=== PATIENT | female | born 1970 | race Caucasian/White ===

== ENCOUNTER 2019-11-05 17:58 | Emergency (ER) | payer OTHER ==
[~2019-11-05] VITALS: Ht 165.1 cm; Wt 75.0 kg
[2019-11-05 18:31] VITALS: BP 185/69
[2019-11-05] MEDS ORDERED: METHIMAZOLE (22:00)
[2019-11-05] MEDS ORDERED: PROPRANOLOL (22:00)
[2019-11-05] MEDS ORDERED: SERT100T PO (22:00)
[2019-11-06] MEDS ORDERED: PROP20TA PO (09:49)
[2019-11-06] MEDS ORDERED: METH10TA6 PO (09:49)
== END 2019-11-05 18:20 | disposition left against medical advice (07) ==
LOC: ER 17:58
DX: Z00.8 Encounter for other general examination (principal); Z53.21 Procedure and treatment not carried out due to patient leaving prior to being seen by health care provider

== ENCOUNTER 2019-11-05 18:46 | Observation (INO) | payer OTHER ==
[~2019-11-05] VITALS: Ht 165.1 cm; Wt 78.6 kg
--- NOTE | 2019-11-05 19:35 | PHYS DOC ---
Past History Past Medical History: Anxiety, Depression, Hypertension Additional Past Medical Histor: graves Past Surgical History: Alcohol Use: None General Adult EDM: Chief Complaint: PSYCH EVALUATION HPI: HPI: 49-year-old female presents with suicidal ideation and depression. She has been feeling this way for "a long time". She has been having daily suicidal thoughts for at least a few weeks. She does not have a specific plan. She has not made an attempt. She just feels overwhelmed by life. She admits to depression and severe anxiety. She denies any medical complaints. She denies alcohol or drug use. She is not a smoker. Denies fever or chills. Review of Systems: Review of Systems: Constitutional: Denies fever or chills Eyes: Denies change in visual acuity HENT: Denies nasal congestion or sore throat Respiratory: Denies cough or shortness of breath Cardiovascular: Denies chest pain or edema GI: Denies abdominal pain, nausea, vomiting, bloody stools or diarrhea : Denies dysuria Musculoskeletal: Denies back pain or joint pain Integument: Denies rash Neurologic: Denies headache, focal weakness or sensory changes Endocrine: Denies polyuria or polydipsia Lymphatic: Denies swollen glands Psychiatric: Suicidal ideation, depression, anxiety. Heart Score: Risk Factors: Risk Factors: DM, Current or recent (<one month) smoker, HTN, HLP, family history of CAD, obesity. Risk Scores: Score 0 - 3: 2.5% MACE over next 6 weeks - Discharge Home Score 4 - 6: 20.3% MACE over next 6 weeks - Admit for Clinical Observation Score 7 - 10: 72.7% MACE over next 6 weeks - Early Invasive Strategies Allergies: Allergies: Allergies Coded Allergies Type Severity Reaction Last Updated Verified No Known Drug Allergies 11/05/19 No Physical Exam: PE: Constitutional: Well developed, well nourished, no acute distress, non-toxic appearance. [] HENT: Normocephalic, atraumatic, bilateral external ears normal, oropharynx moist, no oral exudates, nose normal. [] Eyes: PERRLA, EOMI, conjunctiva normal, no discharge. [] Neck: Normal range of motion, no tenderness, supple, no stridor. [] Cardiovascular:Heart rate regular rhythm, no murmur [] Lungs & Thorax: Bilateral breath sounds clear to auscultation [] Abdomen: Bowel sounds normal, soft, no tenderness, no masses, no pulsatile masses. [] Skin: Warm, dry, no erythema, no rash. [] Back: No tenderness, no CVA tenderness. [] Extremities: No tenderness, no cyanosis, no clubbing, ROM intact, no edema. [] Neurologic: Alert and oriented X 3, normal motor function, normal sensory function, no focal deficits noted. [] Psychologic: Affect tearful, mood depressed. [] Current Patient Data: Vital Signs: Vital Signs Date Time Temp Pulse Resp B/P (MAP) Pulse Ox O2 Delivery O2 Flow Rate FiO2 11/05/19 19:05 98.1 107 16 168/76 (106) 96 Room Air EKG: EKG: [] Radiology/Procedures: Radiology/Procedures: [] Course & Med Decision Making: Course & Med Decision Making Pertinent Labs and Imaging studies reviewed. (See chart for details) The patient's labs are significant for potassium of 2.7. This will require oral and IV replacement. Will admit the patient to the hospital for potassium replacement before her psychiatric screen. I spoke with Dr. Craig and he has accepted the patient for admission. [] Dragon Disclaimer: Dragon Disclaimer: This electronic medical record was generated, in whole or in part, using a voice recognition dictation system. Departure Departure: Impression: Primary Impression: Hypokalemia Additional Impression: Suicidal ideation Disposition: ADMITTED INPATIENT Admitting Physician: Ronald Craig Condition: STABLE Referrals: PCP,NO (PCP) Justification of Admission: Justification of Admission: Justification of Admission Dx: Yes Comments: hypokalemia LAVERN MARK DO Nov 05, 2019 19:35
[2019-11-05 19:56] LABS: BASO % 0 % (0-3); EOS # 0.1 x10^3/uL (0.0-0.7); EOS % 1 % (0-3); HEMATOCRIT 39.2 % (36.0-47.0); HEMOGLOBIN 13.5 g/dL (12.0-15.5); LYMPH # 2.7 x10^3/uL (1.0-4.8); LYMPH % 31 % (24-48); MEAN CORPUSCULAR HEMOGLOBIN 29 pg (25-35); MEAN CORPUSCULAR HGB CONC 35 g/dL (31-37); MEAN CORPUSCULAR VOLUME 85 fL (79-100); MONO # 1.1 x10^3/uL (0.0-1.1); MONO % 13 % (0-9); NEUT # 4.9 x10^3uL (1.8-7.7); NEUT % 56 % (31-73); PLATELET COUNT 286 x10^3/uL (140-400); RED BLOOD COUNT 4.64 x10^6/uL (3.50-5.40); RED CELL DISTRIBUTION WIDTH 12.2 % (11.5-14.5); WHITE BLOOD COUNT 8.8 x10^3/uL (4.0-11.0)
[2019-11-05 19:58] LABS: BARBITURATES NEG (NEG); BENZODIAZEPINES NEG (NEG); CANNABINOIDS NEG (NEG); COCAINE NEG (NEG); METHADONE NEG (NEG); OPIATES NEG (NEG); PHENCYCLIDINE NEG (NEG)
[2019-11-05 20:00] LABS: ALBUMIN 3.2 g/dL (3.4-5.0); ALBUMIN/GLOBULIN RATIO 0.9 (1.0-1.7); CREATININE 0.5 mg/dL (0.6-1.0); GFR 132.2; TOTAL BILIRUBIN 1.3 mg/dL (0.2-1.0); TOTAL PROTEIN 6.7 g/dL (6.4-8.2)
[2019-11-05 20:05] LABS: AMPHETAMINE/METHAMPHETAMINE NEG (NEG)
[2019-11-05 20:08] LABS: CLARITY,URINE HAZY; COLOR,URINE AMBER; GLUCOSE,URINE NEG (NEG)
[2019-11-05 20:09] LABS: BACTERIA,URINE FEW /HPF (0-FEW); NITRITE,URINE NEG (NEG); SQUAMOUS EPITHELIAL CELL,UR FEW /LPF; WBC,URINE OCC /HPF (0-4)
[2019-11-05 20:12] LABS: BILIRUBIN,URINE SMALL (NEG)
[2019-11-05] MEDS ORDERED: POTASSIUM CL 40MEQ IN 0.9%NACL 1,000 ML IV ONE (20:30)
[2019-11-05] MEDS ORDERED: POTASSIUM CHLORIDE 20 MEQ TABLET.ER. PO ONE (20:30)
[2019-11-05] MEDS ORDERED: ONDANSETRON PF 4 MG/2 ML VIAL. IVP PRN (21:15)
[2019-11-05 21:42] VITALS: BP 146/70
[2019-11-05] MEDS ORDERED: METHIMAZOLE (22:00)
[2019-11-05] MEDS ORDERED: SERT100T PO (22:00)
[2019-11-05] MEDS ORDERED: PROPRANOLOL (22:00)
[2019-11-06 06:22] VITALS: BP 159/85
[2019-11-06 06:24] VITALS: BP 159/85
--- NOTE | 2019-11-06 06:38 | EKG ---
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
[2019-11-06 07:19] LABS: ALBUMIN 2.6 g/dL (3.4-5.0); ALBUMIN/GLOBULIN RATIO 0.9 (1.0-1.7); CALCIUM 8.4 mg/dL (8.5-10.1); CREATININE 0.5 mg/dL (0.6-1.0); GFR 132.2; POTASSIUM 3.2 mmol/L (3.5-5.1); TOTAL BILIRUBIN 1.3 mg/dL (0.2-1.0); TOTAL PROTEIN 5.6 g/dL (6.4-8.2)
[2019-11-06] MEDS ORDERED: METH10TA6 PO (09:49)
[2019-11-06] MEDS ORDERED: PROP20TA PO (09:49)
[2019-11-06] MEDS ORDERED: PROPRANOLOL 20 MG TABLET. PO SCH (10:00)
[2019-11-06] MEDS ORDERED: SERTRALINE 100 MG TABLET. PO SCH (10:00)
[2019-11-06] MEDS ORDERED: POTASSIUM CHLORIDE 20 MEQ TABLET.ER. PO ONE (11:15)
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
[2019-11-06 12:01] VITALS: BP 155/79
--- NOTE | 2019-11-06 14:42 | HP ---
ADMIT DATE: 11/05/2019 ADDENDUM The patient was examined earlier today. She is stable from a medical standpoint for transfer to inpatient psychiatric facility. SOLA WEST MD DR: JENNY/kristal JOB#: [id number] / [id number]
[2019-11-06 16:03] VITALS: BP 139/77
--- NOTE | 2019-11-06 16:33 | DS ---
DATE OF DISCHARGE: 11/05/2019 ATTENDING PHYSICIAN: Dr. West. FINAL DISCHARGE DIAGNOSES: 1. A 49-year-old female with major depression and anxiety. 2. Suicidal ideations without active plans. 3. Essential hypertension. 4. History of Graves' disease, on thyroid suppression. 5. Hypokalemia, corrected. HISTORY AND PHYSICAL: This is a 49-year-old female, currently under a lot of stress. She is quite depressed that she had suicidal ideations daily for the last several weeks. She does not have a specific plan. She was very teary eyed, states I don't want to go on like this. She was admitted for further evaluation. PHYSICAL EXAMINATION: Please see the dictated note. PERTINENT LABORATORY AND X-RAY STUDIES: Normal CBC and white count. Potassium 2.7, replaced up to 3.2 and repeat was 3.3 mEq per liter. The rest of the chemistry panel is unremarkable. She had no other symptom. Bilirubin slightly elevated at 1.3 mg/dL. COURSE IN THE HOSPITAL: The patient was admitted. Home meds were restarted. We made a request out to [facility] and they agreed to take the patient. Therefore, she was deemed medically stable. will provide transportation. She was discharged on the second day afternoon to go for inpatient care for depression at [facility]. Her home meds are unchanged. They include the following: She should continue her Zoloft 100 mg daily, Inderal 20 mg b.i.d. and her methimazole 10 mg b.i.d. Her prognosis is fair. She was discharged then from our hospital in stable condition with explicit instructions and followup care. SOLA WEST MD DR: JENNY/kristal JOB#: [id number] / [id number]
[2019-11-08 08:01] LABS: POTASSIUM 2.7 mmol/L (3.5-5.1)
== END 2019-11-06 16:35 ==
LOC: ER 18:46 → 1 SOUTH 21:53 → INTOOBSV 21:53
PROVIDERS: ADMIT Internal Medicine; ATTEND Internal Medicine
DX: E87.6 Hypokalemia (principal); R45.851 Suicidal ideations; F32.9 Major depressive disorder, single episode, unspecified; F41.9 Anxiety disorder, unspecified; I10 Essential (primary) hypertension; E05.00 Thyrotoxicosis with diffuse goiter without thyrotoxic crisis or storm; Z98.891 History of uterine scar from previous surgery; Z79.899 Other long term (current) drug therapy
CPT/HCPCS: 36415; 80053; 80307; 81001; 84132; 85025; 93005; 96365; 96375; 99285; G0378; J2060; J2405; G0379

== ENCOUNTER 2020-03-21 23:22 | Emergency (ER) | payer OTHER ==
[~2020-03-21] VITALS: Ht 165.1 cm; Wt 78.6 kg
[~2020-03-21 23:22] MED LIST: METH10TA6 PO; METHIMAZOLE; PROP20TA PO; PROPRANOLOL; SERT100T PO
--- NOTE | 2020-03-21 23:32 | PHYS DOC ---
Past History Past Medical History: Anxiety, Depression, Hypertension Additional Past Medical Histor: graves Past Surgical History: Alcohol Use: None General Adult EDM: Chief Complaint: FOOT INJURY PAIN HPI: HPI: ".. I was wearing my high heel boots.. and I twisted... my Rt. ankle and foot really bad.. even my foot hurts.. " Patient is a 49 year old female who presents with above hx and complaints of Rt foot and ankle injury. Pt. unable to bear wt. due to pain. Pt.has obvious edema to foot and ankle. Pain with foot squeeze. Some laxity of ankle on anterior draw. Inversion increases pain. Pt. denies other injury. No upper leg pain. Pt. denies any recent travel outside cancer area. Patient denies any specific ill contacts.. Cap refill is equal to left foot. Pt. follows with Dr. Pollard. Review of Systems: Review of Systems: Constitutional: Denies fever or chills Eyes: Denies change in visual acuity HENT: Denies nasal congestion or sore throat Respiratory: Denies cough or shortness of breath Cardiovascular: Denies chest pain or edema GI: Denies abdominal pain, nausea, vomiting, bloody stools or diarrhea : Denies dysuria Musculoskeletal: Complains of right ankle and foot pain Integument: Denies rash Neurologic: Denies headache, focal weakness or sensory changes Endocrine: Denies polyuria or polydipsia Lymphatic: Denies swollen glands Psychiatric: Denies depression or anxiety Family History: Family History: Noncontributory to presentation Current Medications: Current Meds: See nursing for home meds Allergies: Allergies: Allergies Coded Allergies Type Severity Reaction Last Updated Verified No Known Drug Allergies 11/05/19 No Physical Exam: PE: Constitutional: in acute distress, non-toxic appearance. [] HENT: Normocephalic, atraumatic, bilateral external ears normal, oropharynx moist, no oral exudates, nose normal. [] Eyes: PERRLA, EOMI, conjunctiva normal, no discharge. [] Neck: Normal range of motion, no tenderness, supple, no stridor. [] Cardiovascular:Heart rate regular rhythm, no murmur [] Lungs & Thorax: Bilateral breath sounds equal apex on auscultation [] Abdomen: Bowel sounds normal, soft, no tenderness, no masses, no pulsatile masses. [] Skin: Warm, dry, no erythema, no rash. [] Back: No tenderness, no CVA tenderness. [] Extremities: No tenderness, no cyanosis, no clubbing, ROM intact, no edema. Except findings in right ankle as per HPI Neurologic: Alert and oriented X 3, normal motor function, normal sensory function, no focal deficits noted. [] Psychologic: Affect anxious, tearful,, judgement normal, mood normal. [] EKG: EKG: [] Radiology/Procedures: Radiology/Procedures: [][place] [id number] IMAGING REPORT Signed PATIENT: BOB CID JACCOUNT: [id number] : 1970 LOCATION: ER AGE: 49 SEX: F EXAM STATUS: REG ER ORD. PHYSICIAN: GREGORY OVALLES MD REASON: twisted PROCEDURE: FOOT RIGHT 3V Exam: Right foot 3 views. Right ankle 3 views INDICATION: Twisted ankle TECHNIQUE: Frontal, lateral and oblique views of the right ankle and right foot Comparisons: None FINDINGS: Ankle: Bone mineralization is normal. No acute or healed fractures. Soft tissues are unremarkable. Joint spaces are well-maintained. Foot: Bone mineralization is normal. No acute or healed fractures. Soft tissues are unremarkable. Joint spaces are well-maintained. IMPRESSION: No acute osseous abnormality. Electronically signed by: Tom Walters MD (03/21/2020 11:59 PM) [facility] DICTATED AND SIGNED BY: TOM WALTERS MD DATE: 03/21/20 [id number] CC: GREGORY OVALLES MD; STEF GUAMAN MD ~MTH0 0 Heart Score: Risk Factors: Risk Factors: DM, Current or recent (<one month) smoker, HTN, HLP, family history of CAD, obesity. Risk Scores: Score 0 - 3: 2.5% MACE over next 6 weeks - Discharge Home Score 4 - 6: 20.3% MACE over next 6 weeks - Admit for Clinical Observation Score 7 - 10: 72.7% MACE over next 6 weeks - Early Invasive Strategies Course & Med Decision Making: Course & Med Decision Making Pertinent Labs and Imaging studies reviewed. (See chart for details) Ice, elevation, rest, wear splint, use crutches, and follow-up primary care. Tylenol and ibuprofen for pain. Marked pain may take Vicoprofen. Stanley-ray in 2 weeks if persistent pain. For marked pain may take Vicoprofen. Distal neurovascular intact after application of splint Impression: 1. Foot sprain 2. Ankle sprain [] Dragon Disclaimer: Dragon Disclaimer: This electronic medical record was generated, in whole or in part, using a voice recognition dictation system. Departure Departure: Referrals: STEF GUAMAN MD (PCP) Scripts Hydrocodone/Ibuprofen (HYDROCODONE-IBUPROFEN 7.5-200 ) 1 Each Tablet 1 TAB PO PRN Q6HRS PRN for PAIN, #30 TAB 0 Refills Prov: GREGORY OVALLES MD 03/22/20 Uday Disclaimer This chart was dictated in whole or in part using Voice Recognition software in a busy, high-work load, and often noisy Emergency Department environment. It may contain unintended and wholly unrecognized errors or omissions. GREGORY OVALLES MD Mar 21, 2020 23:32
[2020-03-21 23:36] VITALS: BP 129/76
--- NOTE | 2020-03-22 00:02 | RAD ---
Exam: Right foot 3 views. Right ankle 3 views INDICATION: Twisted ankle TECHNIQUE: Frontal, lateral and oblique views of the right ankle and right foot Comparisons: None FINDINGS: Ankle: Bone mineralization is normal. No acute or healed fractures. Soft tissues are unremarkable. Joint spa kaity are well-maintained. Foot: Bone mineralization is normal. No acute or healed fractures. Soft tissues are unremarkable. Joint spa kaity are well-maintained. IMPRESSION: No acute osseous abnormality. Electronically signed by: Tom Carroll MD (03/21/2020 11:59 PM) [facility]
--- NOTE | 2020-03-22 00:02 | RAD ---
Exam: Right foot 3 views. Right ankle 3 views INDICATION: Twisted ankle TECHNIQUE: Frontal, lateral and oblique views of the right ankle and right foot Comparisons: None FINDINGS: Ankle: Bone mineralization is normal. No acute or healed fractures. Soft tissues are unremarkable. Joint spa kaiyt are well-maintained. Foot: Bone mineralization is normal. No acute or healed fractures. Soft tissues are unremarkable. Joint spa kaity are well-maintained. IMPRESSION: No acute osseous abnormality. Electronically signed by: Tom Carroll MD (03/21/2020 11:59 PM) [facility]
[2020-03-22] MEDS ORDERED: HYDR-1179 PO (00:19)
[2020-03-22] MEDS ORDERED: HYDROcodon/IBUPROFEN 7.5/200MG 1 TAB TABLET PO ONE (00:30)
== END 2020-03-22 00:29 | disposition home or self-care (01) ==
LOC: ER 23:22
DX: S93.401A Sprain of unspecified ligament of right ankle, initial encounter (principal); S93.601A Unspecified sprain of right foot, initial encounter; I10 Essential (primary) hypertension; F41.9 Anxiety disorder, unspecified; F32.9 Major depressive disorder, single episode, unspecified; X50.9XXA Other and unspecified overexertion or strenuous movements or postures, initial encounter; Y93.89 Activity, other specified; Y92.89 Other specified places as the place of occurrence of the external cause; Y99.8 Other external cause status
CPT/HCPCS: 73610; 73630; 99284; L4350

== ENCOUNTER 2020-04-08 10:47 | Inpatient (IN) | payer OTHER ==
[~2020-04-08] VITALS: Ht 162.6 cm; Wt 73.0 kg
[2020-04-08] VITALS (18 sets, daily range): BP systolic 104–137; BP diastolic 43–87
[~2020-04-08 10:47] MED LIST changes: +HYDR-1179 PO
[2020-04-08] MEDS ORDERED: dilTIAZem VIAL 125 MG in IV NORMAL SALINE 100ML 100 ML IV ONE (11:00)
[2020-04-08] MEDS ORDERED: IV NORMAL SALINE 1,000ML 1,000 ML IV ONE (11:00)
[2020-04-08] MEDS ORDERED: dilTIAZem 25 MG/5 ML VIAL IVP ONE (11:00)
[2020-04-08] MEDS ORDERED: ASPIRIN 325 MG TABLET PO ONE (11:00)
--- NOTE | 2020-04-08 11:09 | EKG ---
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
[2020-04-08] MEDS ORDERED: IV NORMAL SALINE 100ML 100 ML ONE (11:24)
[2020-04-08 11:36] LABS: BASO % 1 % (0-3); EOS # 0.1 x10^3/uL (0.0-0.7); EOS % 2 % (0-3); HEMATOCRIT 41.1 % (36.0-47.0); HEMOGLOBIN 14.1 g/dL (12.0-15.5); LYMPH # 1.8 x10^3/uL (1.0-4.8); LYMPH % 24 % (24-48); MEAN CORPUSCULAR HEMOGLOBIN 30 pg (25-35); MEAN CORPUSCULAR HGB CONC 34 g/dL (31-37); MEAN CORPUSCULAR VOLUME 88 fL (79-100); MONO # 0.8 x10^3/uL (0.0-1.1); MONO % 11 % (0-9); NEUT # 4.9 x10^3uL (1.8-7.7); NEUT % 63 % (31-73); PLATELET COUNT 337 x10^3/uL (140-400); RED BLOOD COUNT 4.69 x10^6/uL (3.50-5.40); RED CELL DISTRIBUTION WIDTH 12.8 % (11.5-14.5); WHITE BLOOD COUNT 7.7 x10^3/uL (4.0-11.0)
[2020-04-08] MEDS ORDERED: KETOROLAC 15 MG/ML VIAL. IVP ONE (11:45)
--- NOTE | 2020-04-08 11:55 | RAD ---
XR CHEST 1V Clinical Indication: Reason: chest pain / Comparison: None. Findings: The cardiomediastinal silhouette is normal. Lungs are clear. There is no pneumothorax. No pleural eff usion is appreciated. No acute bone abnormality. IMPRESSION: No acute cardiopulmonary process. Electronically signed by: Drew Mccracken MD (04/08/2020 11:53 AM) [id number]
[2020-04-08 11:57] LABS: ALBUMIN 3.1 g/dL (3.4-5.0); ALBUMIN/GLOBULIN RATIO 0.9 (1.0-1.7); CALCIUM 8.6 mg/dL (8.5-10.1); CREATININE 0.5 mg/dL (0.6-1.0); GFR 132.2; MAGNESIUM 1.3 mg/dL (1.8-2.4); TOTAL BILIRUBIN 1.6 mg/dL (0.2-1.0); TOTAL PROTEIN 6.6 g/dL (6.4-8.2)
[2020-04-08 11:59] LABS: POTASSIUM 2.8 mmol/L (3.5-5.1)
[2020-04-08 12:23] LABS: ACETAMIN < 2.0 mcg/mL (10-30); ETHANOL < 10 mg/dL (0-10); SALIC < 2.8 mg/dL (2.8-20.0)
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
[2020-04-08] MEDS ORDERED: POTASSIUM CHLORIDE 20 MEQ TABLET.ER. PO ONE (12:45)
[2020-04-08] MEDS ORDERED: MAGNESIUM SULFATE 2GM 50 ML IV ONE (12:45)
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
[2020-04-08 13:14] LABS: BARBITURATES NEG (NEG); BENZODIAZEPINES NEG (NEG); CANNABINOIDS NEG (NEG); COCAINE NEG (NEG); METHADONE NEG (NEG); OPIATES NEG (NEG); PHENCYCLIDINE NEG (NEG)
[2020-04-08 13:26] LABS: AMPHETAMINE/METHAMPHETAMINE NEG (NEG)
[2020-04-08 13:36] LABS: BACTERIA,URINE 0 /HPF (0-FEW); BILIRUBIN,URINE NEG (NEG); CLARITY,URINE HAZY; COLOR,URINE YELLOW; GLUCOSE,URINE NEG (NEG); NITRITE,URINE NEG (NEG); RBC,URINE OCC /HPF (0-2); SQUAMOUS EPITHELIAL CELL,UR MANY /LPF; UROBILINOGEN,URINE 0.2 mg/dL (0.2 mg/dL); WBC,URINE OCC /HPF (0-4)
[2020-04-08] MEDS ORDERED: ACETAMINOPHEN 325 MG TABLET PO PRN (14:15)
[2020-04-08] MEDS ORDERED: ONDANSETRON PF 4 MG/2 ML VIAL. IVP PRN (14:15)
[2020-04-08 14:35] LABS: FREE T4 7.68 ng/dL (0.76-1.46); THYROID STIM HORMONE (TSH) < 0.007 uIU/mL (0.358-3.740)
[2020-04-08] MEDS ORDERED: dilTIAZem VIAL 125 MG in IV NORMAL SALINE 100ML 100 ML IV PRN (15:30)
[2020-04-08] MEDS ORDERED: METH10TA6 PO (16:19)
[2020-04-08] MEDS ORDERED: PROP20TA PO (17:43)
[2020-04-08] MEDS ORDERED: QUET50TA5 PO (17:43)
[2020-04-08] MEDS ORDERED: SERT100T PO (17:43)
[2020-04-08] MEDS ORDERED: ESCITALOPRAM OX10 MG PO (17:43)
[2020-04-08] MEDS: LORazepam 1 MG TABLET PO PRN (18:58)
[2020-04-08] MEDS: PROPRANOLOL 20 MG TABLET. PO SCH (20:23)
[2020-04-08] MEDS ORDERED: QUEtiapine 50 MG TABLET. PO SCH (21:00)
[2020-04-09] VITALS (14 sets, daily range): BP systolic 104–126; BP diastolic 47–74
[2020-04-09] MEDS: LORazepam 1 MG TABLET PO PRN ×2 (03:12→13:14)
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
[2020-04-09] MEDS: PROPRANOLOL 20 MG TABLET. PO SCH (08:35)
[2020-04-09] MEDS ORDERED: CITALOPRAM 20 MG TABLET. PO SCH (09:00)
[2020-04-09] MEDS ORDERED: SERTRALINE 100 MG TABLET. PO SCH (09:00)
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
[2020-04-09] MEDS ORDERED: MAGNESIUM SULFATE 1GM 100 ML IV ONE (11:30)
[2020-04-09] MEDS ORDERED: POTASSIUM CHLORIDE 20 MEQ TABLET.ER. PO ONE (11:30)
[2020-04-09 13:33] LABS: MAGNESIUM 1.9 mg/dL (1.8-2.4); POTASSIUM 4.1 mmol/L (3.5-5.1)
[2020-04-09] MEDS ORDERED: DILT240C2 PO (15:15)
[2020-04-09] MEDS ORDERED: POTA-163 PO (15:16)
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
== END 2020-04-09 15:30 | disposition home or self-care (01) | DRG 309 ==
LOC: ER 10:47 → EEVIPCON 13:57 → ICU 13:57 → MERGE 13:57
PROVIDERS: ADMIT Hospitalist; ATTEND Hospitalist
DX: I48.91 Unspecified atrial fibrillation (principal); R45.851 Suicidal ideations; E05.00 Thyrotoxicosis with diffuse goiter without thyrotoxic crisis or storm; E03.9 Hypothyroidism, unspecified; E87.6 Hypokalemia; E83.42 Hypomagnesemia; F17.210 Nicotine dependence, cigarettes, uncomplicated; F41.8 Other specified anxiety disorders; F43.10 Post-traumatic stress disorder, unspecified; Z83.3 Family history of diabetes mellitus; Z91.14 Patient's other noncompliance with medication regimen; Z91.19 Patient's noncompliance with other medical treatment and regimen; Z79.899 Other long term (current) drug therapy; S46.911A Strain of unspecified muscle, fascia and tendon at shoulder and upper arm level, right arm, initial encounter; X58.XXXA Exposure to other specified factors, initial encounter; Y93.89 Activity, other specified; Y92.89 Other specified places as the place of occurrence of the external cause; Y99.8 Other external cause status; Z20.822 Contact with and (suspected) exposure to COVID-19
CPT/HCPCS: 36415; 70450; 70486; 71045; 72125; 73030; 80053; 80307; 80329; 81001; 81025; 83690; 83735; 83880; 84132; 84439; 84443; 84481; 84484; 85025; 85610; 85730; 87426; 93005; 96365; 96366; 96368; 96376; G0480; J3475; J3490; U0003; 99291-25; J7030

== ENCOUNTER 2020-07-19 19:14 | Emergency (ER) | payer SELFPAY ==
[~2020-07-19] VITALS: Ht 162.6 cm; Wt 73.0 kg
[~2020-07-19 19:14] MED LIST changes: +DILT240C2 PO; +ESCITALOPRAM OX10 MG PO; +POTA-163 PO; +QUET50TA5 PO
[2020-07-19] MEDS ORDERED: IV NORMAL SALINE 1,000ML 1,000 ML IV ONE (19:30)
--- NOTE | 2020-07-19 19:40 | PHYS DOC ---
Past History Past Medical History: Anxiety, Depression, Other Additional Past Medical Histor: Grave's Disease (LARISSA ALTAMIRANO APRN) Past Surgical History: (LARISSA ALTAMIRANO APRN) Smoking: Cigarettes Alcohol Use: None Drug Use: None (LARISSA ALTAMIRANO APRN) General Adult HPI: HPI: Patient is a 49-year-old female presents with productive cough, shortness of breath, fever, congestion for the last 3 to 5 days. Patient states that the shortness of breath started today. Patient was afebrile but reports feeling like she has been running a fever at home. Patient has history of Graves', A. fib RVR. Denies nausea/vomiting/diarrhea. (LARISSA ALTAMIRANO APRN) Review of Systems: Review of Systems: Constitutional: Reports fever and chills Eyes: Denies change in visual acuity HENT: Reports nasal congestion, right ear pain Respiratory: Reports productive cough and shortness of breath Cardiovascular: Denies chest pain or edema GI: Denies abdominal pain, nausea, vomiting, bloody stools or diarrhea : Denies dysuria Musculoskeletal: Denies back pain or joint pain Integument: Denies rash Neurologic: Reports headache , denies focal weakness or sensory changes Endocrine: Denies polyuria or polydipsia Lymphatic: Denies swollen glands Psychiatric: Denies depression or anxiety (LARISSA ALTAMIRANO APRN) Allergies: Allergies: Allergies Coded Allergies Type Severity Reaction Last Updated Verified No Known Drug Allergies 11/05/19 No (LARISSA ALTAMIRANO APRN) Physical Exam: PE: Constitutional: Well developed, well nourished, no acute distress, non-toxic appearance. [] HENT: Normocephalic, atraumatic, bilateral external ears normal, oropharynx moist, no oral exudates, nose normal. [] Eyes: PERRLA, EOMI, conjunctiva normal, no discharge. [] Neck: Normal range of motion, no tenderness, supple, no stridor. [] Cardiovascular:Heart rate sinus tachycardia, no murmur [] Lungs & Thorax: Bilateral breath sounds clear to auscultation [] Abdomen: Bowel sounds normal, soft, no tenderness, no masses, no pulsatile masses. [] Skin: Warm, dry, no erythema, no rash. [] Back: No tenderness, no CVA tenderness. [] Extremities: No tenderness, no cyanosis, no clubbing, ROM intact, no edema. [] Neurologic: Alert and oriented X 3, normal motor function, normal sensory function, no focal deficits noted. [] Psychologic: Affect normal, judgement normal, mood normal. [] (LARISSA ALTAMIRANO APRN) PE: Right tympanic membrane erythematous and bulging suggestive of otitis media with canal having very mild erythema but no signs of otitis externa. No mastoid process tenderness or erythema. (KARLA JOY MD) EKG: EKG: [] (LARISSA ALTAMIRANO APRN) Radiology/Procedures: Radiology/Procedures: [] (LARISSA ALTAMIRANO APRN) Heart Score: C/O Chest Pain: No Risk Factors: Risk Factors: DM, Current or recent (<one month) smoker, HTN, HLP, family history of CAD, obesity. Risk Scores: Score 0 - 3: 2.5% MACE over next 6 weeks - Discharge Home Score 4 - 6: 20.3% MACE over next 6 weeks - Admit for Clinical Observation Score 7 - 10: 72.7% MACE over next 6 weeks - Early Invasive Strategies (LARISSA ALTAMIRANO APRN) Course & Med Decision Making: Course & Med Decision Making Pertinent Labs and Imaging studies reviewed. (See chart for details) [] 49-year-old female presents with cough, shortness of breath, fatigue for the last 3 to 5 days. Chest x-ray ordered to rule out pneumonia. CBC, CMP ordered to rule out any acute abnormalities. UA ordered to rule out infection. Patient is tachypneic and tachycardic, 120s. Liter bolus given for rehydration. Patient is afebrile. Patient given 600 mg of Motrin for discomfort. Dexamethasone given. Chest x-ray is negative. CT of chest ordered to rule out Covid pneumonia. Spoke with Dr. Dennison, who is willing to accept patient at [facility], will call physician back once results are back. Transfer patient care to Dr. Joy (LARISSA ALTAMIRANO APRN) Course & Med Decision Making Patient is a 49-year-old female with a past medical history of hyperthyroidism/Graves' who has missed doses of her methimazole and propranolol who presents to the emergency department with a chief complaint of palpitations, and right ear pain. Patient care checked out to me awaiting labs and CT. Given tachycardia, tachypnea and periods of illness patient had sepsis on the differential, as well as ACS versus PE versus hyperthyroid. Started on IV fluid, got cultures and started on antibiotics. Patient with right-sided otitis media. Laboratory analysis not concerning. CT with no evidence of PE, or pneumonia but does have an enlarged heterogenous thyroid. Patient apparently in hyperthyroid state, with right-sided otitis media. Started on esmolol and given steroids. Discussed patient with Dr. Dunbar at [facility], who stated she needed to see endocrine which we do not have here and recommended transfer to [facility]. Discussed all findings with patient and recommended admission for continued evaluation and treatment of her hyperthyroid state. Patient grateful, verbalized understanding and agreed with plan of discharge. (KARLA JOY MD) Dragon Disclaimer: Dragon Disclaimer: This electronic medical record was generated, in whole or in part, using a voice recognition dictation system. (LARISSA ALTAMIRANO APRN) Departure Departure: Impression: Primary Impression: Thyroid crisis Additional Impression: Otitis media Disposition: 02 SHORT TERM HOSPITAL Condition: IMPROVED Referrals: STEF GUAMAN MD (PCP) LARISSA ALTAMIRANO APRN July 19, 2020 19:40 KARLA JOY MD July 19, 2020 23:11
[2020-07-19] MEDS ORDERED: IBUPROFEN 600 MG TABLET. PO ONE (19:45)
[2020-07-19 19:54] LABS: BASO % 0 % (0-3); EOS # 0.3 x10^3/uL (0.0-0.7); EOS % 3 % (0-3); HEMATOCRIT 41.8 % (36.0-47.0); HEMOGLOBIN 14.4 g/dL (12.0-15.5); LYMPH # 2.1 x10^3/uL (1.0-4.8); LYMPH % 20 % (24-48); MEAN CORPUSCULAR HEMOGLOBIN 30 pg (25-35); MEAN CORPUSCULAR HGB CONC 35 g/dL (31-37); MEAN CORPUSCULAR VOLUME 87 fL (79-100); MONO # 1.4 x10^3/uL (0.0-1.1); MONO % 14 % (0-9); NEUT # 6.5 x10^3uL (1.8-7.7); NEUT % 63 % (31-73); PLATELET COUNT 257 x10^3/uL (140-400); RED BLOOD COUNT 4.79 x10^6/uL (3.50-5.40); RED CELL DISTRIBUTION WIDTH 12.6 % (11.5-14.5); WHITE BLOOD COUNT 10.3 x10^3/uL (4.0-11.0)
[2020-07-19] MEDS ORDERED: DEXAMETHASONE SOD PHOS 10 MG/ML VIAL. IVP ONE (20:00)
[2020-07-19 20:02] LABS: ALBUMIN 3.1 g/dL (3.4-5.0); ALBUMIN/GLOBULIN RATIO 0.8 (1.0-1.7); CALCIUM 8.8 mg/dL (8.5-10.1); CREATININE 0.6 mg/dL (0.6-1.0); GFR 107.2; POTASSIUM 3.1 mmol/L (3.5-5.1); TOTAL BILIRUBIN 1.6 mg/dL (0.2-1.0); TOTAL PROTEIN 7.2 g/dL (6.4-8.2)
[2020-07-19 20:19] LABS: C REACTIVE PROTEIN 10.9 mg/L (0-3.3)
[2020-07-19] MEDS ORDERED: IOHEXOL 350 MG/ML 100 ML VIAL. IV ONE (20:45)
--- NOTE | 2020-07-19 20:59 | RAD ---
EXAMINATION: XR CHEST 1V CLINICAL HISTORY: Shortness of breath EXAM DATE/TIME: 07/19/2020 7:49 PM COMPARISON: None FINDINGS: Lines, Tubes, and Devices: None. Cardiomediastinal Silhouette: Normal heart size. Aortic atherosclerotic calcification. Lungs and Pleura: No evidence of focal airspace consolidation or pleural effusion. Hazy opacity over the left lower lung zone likely related to increased soft tissue attenuation. Pulmonary vasculature u nremarkable. Bones and Soft Tissues: Degenerative changes of the thoracic spine. IMPRESSION: No evidence of acute cardiopulmonary abnormality. Electronically signed by: Justin Gavin DO (07/19/2020 8:56 PM) [facility]
[2020-07-19] MEDS ORDERED: CONTRAST GIVEN. MC PRN (21:00)
--- NOTE | 2020-07-19 21:43 | RAD ---
PQRS Compliance Statement: One or more of the following individualized dose reduction techniques were utilized for this examinat ion: 1. Automated exposure control 2. Adjustment of the mA and/or kV according to patient size 3. Use of iterative reconstruction technique CTA CHEST 07/19/2020 8:40 PM INDICATION: Shortness of air. History of atrial fibrillation. COMPARISON: None available TECHNIQUE: Axial CT images of the chest were obtained after the intravenous administration of nonioni c contrast. Coronal and sagittal reformats are provided. Maximum intensity projection images of the t horacic vasculature are provided. FINDINGS: Enlarged heterogeneous thyroid. Right hilar lymph node measures 10 mm (series 4, image 57). Infrahila r lymph node on the right measures 8 mm (series 4, image 70). The heart size is within normal limits. No significant pericardial effusion. Thoracic aorta is normal in course and caliber. There is adequate opacification of the pulmonary arterial system. There there are no filling defects within the pulmonary arterial system to suggest acute or chronic pulmonary embolus. 5 mm solid noncalcified pulmonary nodule identified within the lateral right lower lobe (series 4, im age 80). There are no pulmonary infiltrates. There are no pleural effusions. No pulmonary vascular co ngestion or pneumothorax. Cholelithiasis. No suspicious osseous lesions are visualized. IMPRESSION: There is no evidence for acute or chronic pulmonary embolism. Enlarged heterogeneous thyroid gland. Nonemergent thyroid ultrasound could be of benefit. 5 mm solid noncalcified pulmonary nodule identified in the right lower lobe. Fleischner guidelines fo r incidentally detected pulmonary nodules suggests no routine follow-up for low risk patients and opt ional CT at 12 months for high risk patients with solid noncalcified pulmonary nodules less than 6 mm in size. Cholelithiasis. Electronically signed by: Sherine Faustin MD (07/19/2020 9:41 PM) [facility]
--- NOTE | 2020-07-19 22:20 | EKG ---
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
--- NOTE | 2020-07-19 22:22 | EKG ---
[address] [address] Test Date: 2020-07-19 Test Time: 20:22:00 Pat Name: BOB CID Department: Room: Gender: F [place] Program Coordinator: JAMARCUS : 1970 Requested By: LARISSA ALTAMIRANO Order Number: [id number] Reading MD: Measurements Intervals [place] Rate: 115 P: 14 VA: 162 QRS: 11 QRSD: 70 T: 30 QT: 294 QTc: 408 Interpretive Statements SINUS TACHYCARDIA ATRIAL PREMATURE COMPLEX(ES) QRS(T) CONTOUR ABNORMALITY CONSISTENT WITH ANTEROSEPTAL INFARCT PROBABLY OLD CONSISTENT WITH INFERIOR INFARCT PROBABLY OLD ABNORMAL ECG RI6.02 No previous ECG available for comparison
[2020-07-19] MEDS ORDERED: ESMOLOL 2500MG/250ML PREMIX 250 ML IV ONE (22:45)
[2020-07-19] MEDS ORDERED: ESMOLOL 100 MG/10 ML VIAL. IV ONE (23:00)
[2020-07-20 00:31] LABS: BACTERIA,URINE 0 /HPF (0-FEW); BILIRUBIN,URINE NEG (NEG); CLARITY,URINE CLEAR; COLOR,URINE YELLOW; GLUCOSE,URINE NEG (NEG); NITRITE,URINE NEG (NEG); RBC,URINE 0 /HPF (0-2); UROBILINOGEN,URINE 0.2 mg/dL (0.2 mg/dL); WBC,URINE 0 /HPF (0-4)
[2020-07-20 00:32] LABS: SQUAMOUS EPITHELIAL CELL,UR OCC /LPF
[2020-07-20 01:15] VITALS: BP 167/89
[2020-07-20] MEDS ORDERED: IV RINGERS SOLUTION,LACTATED 1,000 ML IV ONE (01:15)
[2020-07-20] MEDS ORDERED: ESMOLOL 100 MG/10 ML VIAL. IV ONE (01:15)
[2020-07-20] MEDS ORDERED: FUROSEMIDE 40 MG/4 ML VIAL IVP ONE (03:45)
== END 2020-07-20 02:56 | disposition short-term general hospital (02) ==
LOC: ER 19:14
DX: E05.91 Thyrotoxicosis, unspecified with thyrotoxic crisis or storm (principal); H66.91 Otitis media, unspecified, right ear; F17.210 Nicotine dependence, cigarettes, uncomplicated
CPT/HCPCS: 36415; 71045; 71275; 80053; 81001; 82550; 83605; 83615; 83735; 84145; 84439; 84443; 84484; 85025; 86140; 87040; 93005; 96361; 96365; 96366; 96367; 96375; 96376; 99285; J1100; J1956; J3490; J7030; J7120; Q9967

== ENCOUNTER 2020-10-03 21:43 | Emergency (ER) | payer SELFPAY ==
[~2020-10-03] VITALS: Ht 162.6 cm; Wt 73.0 kg
[2020-10-03 23:18] LABS: BASO % 0 % (0-3); EOS # 0.5 x10^3/uL (0.0-0.7); EOS % 7 % (0-3); HEMATOCRIT 38.3 % (36.0-47.0); HEMOGLOBIN 13.1 g/dL (12.0-15.5); LYMPH # 1.9 x10^3/uL (1.0-4.8); LYMPH % 25 % (24-48); MEAN CORPUSCULAR HEMOGLOBIN 29 pg (25-35); MEAN CORPUSCULAR HGB CONC 34 g/dL (31-37); MEAN CORPUSCULAR VOLUME 86 fL (79-100); MONO # 1.1 x10^3/uL (0.0-1.1); MONO % 14 % (0-9); NEUT # 4.1 x10^3uL (1.8-7.7); NEUT % 54 % (31-73); PLATELET COUNT 246 x10^3/uL (140-400); RED BLOOD COUNT 4.45 x10^6/uL (3.50-5.40); RED CELL DISTRIBUTION WIDTH 12.4 % (11.5-14.5); WHITE BLOOD COUNT 7.7 x10^3/uL (4.0-11.0)
[2020-10-03 23:29] LABS: CALCIUM 8.9 mg/dL (8.5-10.1); CREATININE 0.5 mg/dL (0.6-1.0); GFR 131.7; POTASSIUM 4.1 mmol/L (3.5-5.1)
[2020-10-03] MEDS ORDERED: IV NORMAL SALINE 1,000ML 1,000 ML IV ONE (23:30)
[2020-10-03 23:35] LABS: ALBUMIN 3.2 g/dL (3.4-5.0); ALBUMIN/GLOBULIN RATIO 1.1 (1.0-1.7)
[2020-10-03] MEDS ORDERED: ONDA4TAB12 PO (23:47)
--- NOTE | 2020-10-03 23:47 | PHYS DOC ---
Past History Past Medical History: A-Fib, Anxiety, Depression, Other Additional Past Medical Histor: Grave's Disease Past Surgical History: Smoking: Cigarettes Alcohol Use: None Drug Use: None General Adult EDM: Chief Complaint: MULTIPLE COMPLAINTS HPI: HPI: 50-year-old female presents with cough, congestion, decreased taste for last couple of days. She is most concerned about feeling like she cannot catch her breath. She was not vaccinated for COVID-19. She does not believe she is had a fever at home. Review of Systems: Review of Systems: Constitutional: Denies fever or chills Eyes: Denies change in visual acuity HENT: Decreased taste Respiratory: Cough with shortness of breath Cardiovascular: Denies chest pain or edema GI: Denies abdominal pain, nausea, vomiting, bloody stools or diarrhea : Denies dysuria Musculoskeletal: Denies back pain or joint pain Integument: Denies rash Neurologic: Denies headache, focal weakness or sensory changes Endocrine: Denies polyuria or polydipsia Lymphatic: Denies swollen glands Psychiatric: Denies depression or anxiety Current Medications: Current Meds: Current Medications Medications (Trade) Dose Ordered Sig/Anthony Start Time Stop Time Status Last Admin Dose Admin Dexamethasone Sodium Phosphate (Decadron) 10 mg 1X ONCE 10/04/20 00:00 10/04/20 00:01 Ondansetron HCl (Zofran) 4 mg 1X ONCE 10/04/20 00:00 10/04/20 00:01 Sodium Chloride 1,000 ml @ 1,000 mls/hr 1X ONCE 10/03/20 23:30 10/04/20 00:29 10/03/20 23:04 1,000 MLS/HR Allergies: Allergies: Allergies Coded Allergies Type Severity Reaction Last Updated Verified No Known Drug Allergies 11/05/19 No Physical Exam: PE: Constitutional: Well developed, well nourished, no acute distress, non-toxic appearance. [] HENT: Normocephalic, atraumatic, bilateral external ears normal, oropharynx moist, no oral exudates, nose normal. [] Eyes: PERRLA, EOMI, conjunctiva normal, no discharge. [] Neck: Normal range of motion, no tenderness, supple, no stridor. [] Cardiovascular:Heart rate regular rhythm, no murmur [] Lungs & Thorax: Coughing. Bilateral breath sounds clear to auscultation [] Abdomen: Bowel sounds normal, soft, no tenderness, no masses, no pulsatile masses. [] Skin: Warm, dry, no erythema, no rash. [] Back: No tenderness, no CVA tenderness. [] Extremities: No tenderness, no cyanosis, no clubbing, ROM intact, no edema. [] Neurologic: Alert and oriented X 3, normal motor function, normal sensory function, no focal deficits noted. [] Psychologic: Affect normal, judgement normal, mood normal. [] Current Patient Data: Labs: Laboratory Tests Test 10/03/20 22:50 White Blood Count 7.7 x10^3/uL (4.0-11.0) Red Blood Count 4.45 x10^6/uL (3.50-5.40) Hemoglobin 13.1 g/dL (12.0-15.5) Hematocrit 38.3 % (36.0-47.0) Mean Corpuscular Volume 86 fL (79-100) Mean Corpuscular Hemoglobin 29 pg (25-35) Mean Corpuscular Hemoglobin Concent 34 g/dL (31-37) Red Cell Distribution Width 12.4 % (11.5-14.5) Platelet Count 246 x10^3/uL (140-400) Neutrophils (%) (Auto) 54 % (31-73) Lymphocytes (%) (Auto) 25 % (24-48) Monocytes (%) (Auto) 14 % (0-9) H Eosinophils (%) (Auto) 7 % (0-3) H Basophils (%) (Auto) 0 % (0-3) Neutrophils # (Auto) 4.1 x10^3uL (1.8-7.7) Lymphocytes # (Auto) 1.9 x10^3/uL (1.0-4.8) Monocytes # (Auto) 1.1 x10^3/uL (0.0-1.1) Eosinophils # (Auto) 0.5 x10^3/uL (0.0-0.7) Basophils # (Auto) 0.0 x10^3/uL (0.0-0.2) Sodium Level 141 mmol/L (136-145) Potassium Level 4.1 mmol/L (3.5-5.1) Chloride Level 108 mmol/L (98-107) H Carbon Dioxide Level 28 mmol/L (21-32) Anion Gap 5 (6-14) L Blood Urea Nitrogen 10 mg/dL (7-20) Creatinine 0.5 mg/dL (0.6-1.0) L Estimated GFR (Cockcroft-Gault) 131.7 BUN/Creatinine Ratio 20 (6-20) Glucose Level 124 mg/dL (70-99) H Lactic Acid Level 1.6 mmol/L (0.4-2.0) Calcium Level 8.9 mg/dL (8.5-10.1) Total Bilirubin 1.0 mg/dL (0.2-1.0) Aspartate Amino Transferase (AST) 13 U/L (15-37) L Alanine Aminotransferase (ALT) 28 U/L (14-59) Alkaline Phosphatase 87 U/L (46-116) Troponin I Quantitative < 0.017 ng/mL (0-0.055) Total Protein 6.0 g/dL (6.4-8.2) L Albumin 3.2 g/dL (3.4-5.0) L Albumin/Globulin Ratio 1.1 (1.0-1.7) Vital Signs: Vital Signs Date Time Temp Pulse Resp B/P (MAP) Pulse Ox O2 Delivery O2 Flow Rate FiO2 10/03/20 22:56 98.4 85 18 154/74 97 Room Air EKG: EKG: [] Radiology/Procedures: Radiology/Procedures: [] Heart Score: C/O Chest Pain: N/A Risk Factors: Risk Factors: DM, Current or recent (<one month) smoker, HTN, HLP, family history of CAD, obesity. Risk Scores: Score 0 - 3: 2.5% MACE over next 6 weeks - Discharge Home Score 4 - 6: 20.3% MACE over next 6 weeks - Admit for Clinical Observation Score 7 - 10: 72.7% MACE over next 6 weeks - Early Invasive Strategies Course & Med Decision Making: Course & Med Decision Making Pertinent Labs and Imaging studies reviewed. (See chart for details) The patient's chest x-ray shows some perihilar prominence, but no focal consolidation. Based on her symptoms she has COVID-19. Her oxygen saturation is 97 to 98% on room air. I have given her 4 mg of Zofran and 10 mg of Decadron IV. She does not meet admission criteria. She is stable for discharge at this time. I will give her Zofran for her nausea and a prescription for the same at home. [] Uday Disclaimer: Uday Disclaimer: This electronic medical record was generated, in whole or in part, using a voice recognition dictation system. Departure Departure: Impression: Primary Impression: COVID-19 Disposition: HOME / SELF CARE / HOMELESS Condition: STABLE Referrals: STEF GUAMAN MD (PCP) Additional Instructions: You have been tested for or diagnosed with COVID-19. It is an infection caused by a new type of coronavirus. COVID-19 will cause cold-like or mild flu symptoms in most. It can cause more severe symptoms like problems breathing in some. There is no treatment for COVID-19. The body will clear the infection over time. Self-care will help to ease discomfort. Steps to Take: Self-Care Rest as needed. Healthy habits may help you feel better. Steps include: Choose healthy foods including fruits and vegetables. Drink water throughout the day. Get plenty of sleep each night. If you smoke, try to quit. It may ease breathing. Avoid alcohol. Keep Others Healthy The virus can spread to others. Droplets are released every time you sneeze or cough. The droplets can get into the mouth, nose, or eyes of people near you and lead to infection. To lower the chances of spreading COVID-19 to others: Stay at home until your doctor has said it is safe to leave. If you tested positive this will mean staying isolated until both of the following are true: At least 7 days have passed since the start of illness. You are free of fever for at least 72 hours without the use of medicine. During this time: - Avoid public areas, events, or transportation. Do not return to work or school until your doctor has said it is safe to do so. - Call ahead if you need to go to a medical center. Let them know you may have COVID-19. It will help them guide you where to go. They may also ask you to wear a facemask when you come to the office. - If you call for emergency medical services, let them know you may have COVID- 19. While at home: - Try to avoid close contact with others. Stay about 6 feet away. - If possible, spend most of your time in a separate room from others. - Use a face mask if you will be in close contact with others such as sharing a room or vehicle. - Have someone wipe down common surfaces in the home. Use household optical goods drilling machine operator every day on areas like doorknobs, counters, or sinks. - Cough or sneeze into a tissue. Throw the tissue away right after use. If a tissue is not available, cough or sneeze into your elbow. - Wash your hands often. Wash them after sneezing or coughing. Use soap and water and wash for at least 20 seconds. Alcohol based hand smoking pipes cleaner can be used if soap and water is not available. - Do not prepare food for others. Avoid sharing personal items like forks, spoons, or toothbrushes. - Avoid close contact with pets while you are sick. There is no evidence of the virus passing to pets. This is a safety step until more is known about this virus. Isolation can be frustrating. Social interaction can help. Keep in touch with friends and family through phone and tech options. You can still interact with others in your home, just keep a safe distance of about 6 feet. Follow-up: Your doctors office will check in with you to see if there are any changes in your health. You may be asked to keep track of symptoms to share with them. They will also let you know when you are clear to be in public again. Problems to Look Out For: Contact your doctor if your recovery is not going as you expect. Get emergency care if you have problems such as: - Trouble breathing - Nonstop chest pain or pressure - Changes in awareness, confusion, or problems waking - Lips or face have bluish color - Worsening of symptoms If you think you have an emergency, call for emergency medical services right away. As taken from [facility] Ondansetron (ONDANSETRON ODT) 4 Mg Tab.rapdis 1 TAB PO PRN Q6-8HRS PRN for VOMITING, #16 TAB Prov: LAVERN MARK DO 10/03/20 LAVERN MARK DO Oct 03, 2020 23:47
--- NOTE | 2020-10-03 23:49 | RAD ---
Exam: Chest one view INDICATION: Chest tightness TECHNIQUE: Frontal view of the chest Comparisons: 07/19/2020 FINDINGS: The cardiomediastinal silhouette and pulmonary vessels are within normal limits. The lung and pleural spaces are clear. IMPRESSION: No acute cardiopulmonary process. Electronically signed by: Tom Carroll MD (10/03/2020 11:47 PM) LAURO
[2020-10-04] MEDS ORDERED: ONDANSETRON PF 4 MG/2 ML VIAL. IVP ONE
[2020-10-04] MEDS ORDERED: DEXAMETHASONE SOD PHOS 10 MG/ML VIAL. IVP ONE
[2020-10-04 00:03] VITALS: BP 154/74
--- NOTE | 2020-10-04 01:21 | EKG ---
[address] [address] Test Date: 2020-10-03 Test Time: 23:05:21 Pat Name: BOB CID Department: Room: Gender: F Outpatient Case Manager: : 1970 Requested By: LAVERN MARK Order Number: [id number] Reading MD: Measurements Intervals [place] Rate: 82 P: 40 MD: 178 QRS: 30 QRSD: 74 T: 48 QT: 340 QTc: 400 Interpretive Statements SINUS RHYTHM NORMAL ECG RI6.02 No previous ECG available for comparison
== END 2020-10-04 00:05 | disposition home or self-care (01) ==
LOC: ER 21:43
DX: U07.1 COVID-19 (principal); I48.91 Unspecified atrial fibrillation; F17.210 Nicotine dependence, cigarettes, uncomplicated; F41.9 Anxiety disorder, unspecified; F32.9 Major depressive disorder, single episode, unspecified; Z98.890 Other specified postprocedural states
CPT/HCPCS: 36415; 71045; 80053; 83605; 84484; 85025; 93005; 96361; 96374; 96375; 99285; C9803; J1100; J2405; J7030; U0003

== ENCOUNTER 2021-05-25 07:10 | Emergency (ER) | payer SELFPAY ==
[~2021-05-25] VITALS: Ht 162.6 cm; Wt 61.0 kg
[~2021-05-25 07:10] MED LIST changes: +METH10TA32 PO; -METH10TA6 PO; +ONDA4TAB12 PO
[2021-05-25] MEDS ORDERED: IV NORMAL SALINE 1,000ML 1,000 ML IV ONE (07:45)
--- NOTE | 2021-05-25 07:45 | PHYS DOC ---
Past History Past Medical History: A-Fib, Anxiety, Depression, Other Additional Past Medical Histor: Grave's Disease Past Surgical History: Smoking: Cigarettes Alcohol Use: None Drug Use: None General Adult EDM: Chief Complaint: MULTIPLE COMPLAINTS HPI: HPI: 50-year-old female presents with chest tightness, elevated heart rate, and feeling jittery. The patient has Graves' disease and has been hyperthyroid for many years. She is supposed to be on propranolol and methimazole. She has been out of these for a month. The patient feels like she is not always thinking clearly. She gets intermittently sweaty. She is tired all the time. She has lost some weight but states that she feels hungry and eats all the time. She also complains about being thirsty a lot. She did not think to call her doctor's office to get a bridge prescription until she can be seen in the office. She has no other complaints this time. Review of Systems: Review of Systems: Constitutional: Denies fever or chills. Fatigue, weight loss. Eyes: Denies change in visual acuity HENT: Denies nasal congestion or sore throat Respiratory: shortness of breath Cardiovascular: Chest tightness GI: Denies abdominal pain, nausea, vomiting, bloody stools or diarrhea : Denies dysuria Musculoskeletal: Denies back pain or joint pain Integument: Denies rash Neurologic: Denies headache, focal weakness or sensory changes Endocrine: polydipsia Lymphatic: Denies swollen glands Psychiatric: Denies depression or anxiety Allergies: Allergies: Allergies Coded Allergies Type Severity Reaction Last Updated Verified No Known Drug Allergies 05/25/21 No Physical Exam: PE: Constitutional: Well developed, well nourished, no acute distress, non-toxic appearance. [] HENT: Normocephalic, atraumatic, bilateral external ears normal, oropharynx moist, no oral exudates, nose normal. [] Eyes: PERRLA, EOMI, conjunctiva normal, no discharge. [] Neck: Normal range of motion, prominent goiter [] Cardiovascular: Heart rate 102, regular rhythm, no murmur [] Lungs & Thorax: Bilateral breath sounds clear to auscultation [] Abdomen: Bowel sounds normal, soft, no tenderness, no masses, no pulsatile masses. [] Skin: Warm, dry, no erythema, no rash. [] Back: No tenderness, no CVA tenderness. [] Extremities: No tenderness, no cyanosis, no clubbing, ROM intact, no edema. [] Neurologic: Alert and oriented X 3, normal motor function, normal sensory funct ion, no focal deficits noted. [] Psychologic: Affect normal, judgement normal, mood anxious. [] Current Patient Data: Vital Signs: Vital Signs Date Time Temp Pulse Resp B/P (MAP) Pulse Ox O2 Delivery O2 Flow Rate FiO2 05/25/21 07:20 97.5 109 22 151/79 (103) 97 EKG: EKG: Sinus rhythm, rate 98, normal axis, no ST elevation or depression. [] Radiology/Procedures: Radiology/Procedures: [] Heart Score: C/O Chest Pain: Yes HEART Score for Chest Pain: HEART Score for Chest Pain Response (Comments) Value History Slighlty/Non-Suspicious 0 ECG Normal 0 Age >45 - < 65 1 Risk Factors 1 or 2 Risk Factors 1 Troponin < Normal Limit 0 Total 2 Risk Factors: Risk Factors: DM, Current or recent (<one month) smoker, HTN, HLP, family history of CAD, obesity. Risk Scores: Score 0 - 3: 2.5% MACE over next 6 weeks - Discharge Home Score 4 - 6: 20.3% MACE over next 6 weeks - Admit for Clinical Observation Score 7 - 10: 72.7% MACE over next 6 weeks - Early Invasive Strategies Course & Med Decision Making: Course & Med Decision Making Pertinent Labs and Imaging studies reviewed. (See chart for details) The patient's EKG is unremarkable. The patient's labs are unremarkable except for an elevated bilirubin. See labs for more details. Her troponin is negative. I will not get her TSH back today. I suspect this is all related to complications from her hyperthyroid condition. I have advised that she call her physician today for refill on her medications and an appointment as soon as possible. She is stable for discharge at this time. [] Dragon Disclaimer: Uday Disclaimer: This electronic medical record was generated, in whole or in part, using a voice recognition dictation system. Departure Departure: Impression: Primary Impression: Chest pain Qualified Codes: R07.9 - Chest pain, unspecified Additional Impression: Graves disease Disposition: HOME / SELF CARE / HOMELESS Condition: STABLE Referrals: STEF GUAMAN MD (PCP) Patient Instructions: Chest Pain (Nonspecific), [id number], Thyroid Diseases LAVERN MARK DO May 25, 2021 07:45
[2021-05-25 08:09] LABS: BASO % 1 % (0-3); EOS # 0.4 x10^3/uL (0.0-0.7); EOS % 9 % (0-3); HEMATOCRIT 46.3 % (36.0-47.0); HEMOGLOBIN 15.3 g/dL (12.0-15.5); LYMPH # 1.6 x10^3/uL (1.0-4.8); LYMPH % 33 % (24-48); MEAN CORPUSCULAR HEMOGLOBIN 29 pg (25-35); MEAN CORPUSCULAR HGB CONC 33 g/dL (31-37); MEAN CORPUSCULAR VOLUME 89 fL (79-100); MONO # 0.6 x10^3/uL (0.0-1.1); MONO % 13 % (0-9); NEUT # 2.1 x10^3uL (1.8-7.7); NEUT % 44 % (31-73); PLATELET COUNT 239 x10^3/uL (140-400); RED BLOOD COUNT 5.21 x10^6/uL (3.50-5.40); RED CELL DISTRIBUTION WIDTH 12.2 % (11.5-14.5); WHITE BLOOD COUNT 4.7 x10^3/uL (4.0-11.0)
[2021-05-25 08:16] LABS: CALCIUM 9.7 mg/dL (8.5-10.1); CREATININE 0.5 mg/dL (0.6-1.0); GFR 131.7; POTASSIUM 4.2 mmol/L (3.5-5.1)
[2021-05-25 08:19] LABS: BACTERIA,URINE 0 /HPF (0-FEW); BARBITURATES NEG (NEG); BENZODIAZEPINES NEG (NEG); CANNABINOIDS NEG (NEG); CLARITY,URINE CLEAR; COCAINE NEG (NEG); COLOR,URINE YELLOW; GLUCOSE,URINE NEG (NEG); METHADONE NEG (NEG); NITRITE,URINE NEG (NEG); OPIATES NEG (NEG); PHENCYCLIDINE NEG (NEG); SQUAMOUS EPITHELIAL CELL,UR MANY /LPF; UROBILINOGEN,URINE 0.2 mg/dL (0.2 mg/dL)
[2021-05-25 08:20] LABS: HYALINE CASTS, URINE OCC /HPF
--- NOTE | 2021-05-25 08:21 | RAD ---
INDICATION: Reason: CP / Spl. Instructions: / History: COMPARISON: October 03, 2020 FINDINGS: Single view of chest obtained. Calcific atherosclerosis. Cardiac mediastinal silhouette is similar prior. No definite new region of airspace consolidation. Some limitation at left lung base secondary to over lap of structures IMPRESSION: * No definite focal consolidation. Electronically signed by: New Gordon MD (05/25/2021 8:19 AM) [id number]
[2021-05-25 08:22] LABS: AMPHETAMINE/METHAMPHETAMINE NEG (NEG)
[2021-05-25 08:23] LABS: ALBUMIN 3.2 g/dL (3.4-5.0); TOTAL BILIRUBIN 2.3 mg/dL (0.2-1.0); TOTAL PROTEIN 6.3 g/dL (6.4-8.2)
--- NOTE | 2021-05-25 08:42 | EKG ---
[address] [address] Test Date: 2021-05-25 Test Time: 08:02:50 Pat Name: BOB CID Department: Room: Gender: F Crane Manager: : 1970 Requested By: LAVERN MARK Order Number: [id number] Reading MD: Measurements Intervals [place] Rate: 98 P: 59 IA: 162 QRS: 29 QRSD: 78 T: 46 QT: 328 QTc: 421 Interpretive Statements SINUS RHYTHM BIATRIAL ENLARGEMENT QRS(T) CONTOUR ABNORMALITY CONSIDER INFERIOR MYOCARDIAL DAMAGE ABNORMAL ECG RI6.01 No previous ECG available for comparison
[2021-05-25 09:20] VITALS: BP 145/72
== END 2021-05-25 09:50 | disposition home or self-care (01) ==
LOC: ER 07:10
DX: R07.89 Other chest pain (principal); E05.00 Thyrotoxicosis with diffuse goiter without thyrotoxic crisis or storm; I48.91 Unspecified atrial fibrillation; F41.9 Anxiety disorder, unspecified; F32.9 Major depressive disorder, single episode, unspecified; F17.210 Nicotine dependence, cigarettes, uncomplicated
CPT/HCPCS: 36415; 71045; 80053; 80307; 81001; 84443; 84484; 85025; 93005; 96360; 99285; J7030